=== PATIENT | male | born 1980 | race Caucasian/White ===

== ENCOUNTER → 2016-10-08 | Outpatient (CLI) | payer BC ==
[~2016-10-08] VITALS: Ht 172.7 cm; Wt 150.9 kg
[2016-10-08 16:18] VITALS: BP 128/82; PULSE 90; Ht 172.7 cm; Wt 150.9 kg
== END | disposition home or self-care (01) ==
LOC: C.NEUR 15:19
PROVIDERS: ATTEND Physician Assistant
DX: G47.33 Obstructive sleep apnea (adult) (pediatric) (principal)